=== PATIENT | female | born 1960 | race Caucasian/White ===

== ENCOUNTER 2018-01-05 18:23 | Emergency (ER) | payer OTHER ==
[~2018-01-05 18:23] MED LIST: ISOVUE-370 76%-LOCM 1 ML ONE
[2018-01-05 19:03] LABS: #Lymphocytes 0.4 thou/uL (1.20-3.40); #Monocytes 0.2 thou/uL (0.11-0.59); #Neutrophils 6.1 thou/uL (1.40-6.50); %Basophils 0.1 % (0.0-1.0); %Eosinophils 0.6 % (0.0-10.0); %Lymphocytes 5.7 % (21.0-51.0); %Monocytes 3.3 % (0.0-10.0); %Neutrophils 90.3 % (42.0-75.0); Hemoglobin 12.8 g/dL (12.0-16.0); Mean Corpuscular HGB CONC 33.4 g/dL (32.0-36.0); Mean Corpuscular Hemoglobin 30.2 pg (27.0-31.0); Mean Corpuscular Volume 90.6 fl (81.0-99.0); Mean Platelet Volume 6.9 fL (7.4-10.4); Platelet Count 259 thou/uL (130-400); RBC Distribution Width 13.4 % (11.5-14.5); Red Blood Cell (RBC) Count 4.25 mill/uL (4.20-5.40); White Blood Cell (WBC) Count 6.8 thou/uL (4.8-10.8)
[2018-01-05 19:19] LABS: Lactic Acid 1.1 mmol/L (0.5-2.2)
[2018-01-05 19:24] LABS: ALT (SGPT) 11 U/L (8-55); AST (SGOT) 17 U/L (5-34); Albumin 4.2 g/dL (3.5-5.0); Alkaline Phosphatase 57 U/L (40-150); Anion Gap 13 mmol/L (10-20); BUN (Urea Nitrogen) 18 mg/dL (9.8-20.1); Bilirubin, Total 1.2 mg/dL (0.2-1.2); Calc. Creatinine Clearance 0 mL/min (70-130); Calcium 8.9 mg/dL (7.8-10.44); Carbon Dioxide 24 mmol/L (22-29); Chloride 104 mmol/L (98-107); Estimated GFR-MDRD 74; Globulin 2.5 g/dL (2.4-3.5); Glucose 99 mg/dL (70-105); Lipase 11 U/L (8-78); Potassium 3.7 mmol/L (3.5-5.1); Protein, Total 6.7 g/dL (6.0-8.3); Sodium 137 mmol/L (136-145)
[2018-01-05 19:27] LABS: Troponin I Less than 0.010 ng/mL (< 0.028)
[2018-01-05 20:00] LABS: Bilirubin Negative (Negative); Blood, Urine Negative (Negative); Clarity CLEAR (Clear); Glucose, Urine (Dipstick) Negative (Negative); Leukocyte Negative (Negative); Nitrite Negative (Negative); Protein, Urine (Dipstick) Negative (Neg-Trace); Specific Gravity, Urine 1.007 (1.002-1.036); Urobilinogen 0.2 mg/dL (0.2-1.0)
[2018-01-05 20:06] LABS: PTT 25.9 SEC (22.9-36.1); Prothrombin Time 13.7 SEC (12.0-14.7)
[2018-01-05] MEDS ORDERED: Acetaminophen 500 MG TAB ONE (20:12)
[2018-01-05] MEDS ORDERED: Ondansetron ODT 4 MG TAB ONE (20:57)
--- NOTE | 2018-01-05 21:31 | CT ---
CT PULMONARY ANGIO OF CHEST INCLUDING 3D RENDERIN01/05/18 HISTORY: 57-year-old female with history of hypotension and elevated D-dimer. Nausea, lightheadedness. No significant CT evidence for acute pulmonary embolism. Old granulomatous disease. No pleural or per icardial effusion. IMPRESSION: No significant CT evidence for acute pulmonary embolism. Old granulomatous disease. No other signific ant acute process. POS: [facility]
[2018-01-05] MEDS ORDERED: Ketorolac Tromethamine 30 MG/ML VIAL ONE (22:02)
== END 2018-01-05 22:11 | disposition home or self-care (01) ==
LOC: ERS 18:23
DX: R55 Syncope and collapse (principal); Z79.899 Other long term (current) drug therapy
CPT/HCPCS: 71275; 80053; 81003; 82553; 83605; 83690; 84484; 85025; 85379; 85610; 85730; 93005; 96361; 96374; J1885; Q0162